=== PATIENT | male | born 1990 | race American Indian/Alaskan Native ===

== ENCOUNTER 2018-06-13 02:28 | Emergency (ER) | payer SELFPAY ==
[2018-06-13 03:30] VITALS: BP 126/81
--- NOTE | 2018-06-13 04:30 | Cat Scan Report ---
FINAL REPORT PROCEDURE: CT HEAD/BRAIN WO CON TECHNIQUE: Computerized tomography of the head was performed without contrast material. HISTORY: headache and right face pain COMPARISON: No prior studies are available for comparison. FINDINGS: Skull and scalp: Normal. Paranasal sinuses: Normal. Ventricles and subarachnoid spaces: Normal. Cerebrum: No evidence of hemorrhage, acute infarction or mass . Cerebellum and brainstem: No evidence of hemorrhage, acute infarction or mass. Vasculature: Normal. Comments: None. IMPRESSION: Normal Examination
--- NOTE | 2018-06-13 05:39 | Cat Scan Report ---
FINAL REPORT PROCEDURE: CT FACIAL BONES WO CON TECHNIQUE: Computerized tomography of the facial bones and soft tissues with axial and coronal sections performed from the cranial aspect of the frontal sinuses to the caudal portion of the mandible without contrast material. HISTORY: headache and right face pain COMPARISON: No prior studies are available for comparison. FINDINGS: Bones: No significant abnormality. Paranasal sinuses: There are polyps in the maxillary sinuses. There are no air-fluid levels. The ostiomeatal units are obstructed by mucosal thickening. The right middle turbinate is pneumatized. The nasal septum is midline and intact. Soft tissues: No significant abnormality. Other: None. IMPRESSION: There is no acute bony abnormality. There is no acute sinusitis. There are polyps in the maxillary sinuses bilaterally.
[2018-06-13] MEDS ORDERED: MOTRIN PO ONE (05:55)
--- NOTE | 2018-06-13 06:11 | Emergency Department Report ---
ED Headache HPI - General Chief Complaint: Headache Stated Complaint: FACIAL INJURY Time Seen by Provider: 06/13/18 05:53 - History of Present Illness Initial Comments: When he 7-year-old -[place] male presents to the emergency room reporting that automatic sliding door hit him in the left side of his head and cheek while at work tonight. Patient reports a mild headache but has improved some since being here. Patient denies any intent to vision no nausea no vomiting no worsening of headache. He denies any past medical history currently takes no medications on a daily basis and has no known drug allergies. Quality: achy Head Injury Location: temporal Associated Symptoms: denies: confusion, fatigue, fever/chills, loss of consciousness, nausea/vomiting, nasal congestion, nasal drainage, seizures Allergies/Adverse Reactions: Allergies No Known Allergies Allergy (Unverified 06/13/18 03:31) Home Medications: Ambulatory Orders Ibuprofen [Motrin 600 MG tab] 600 mg PO Q8H #15 tablet 06/13/18 ED Review of Systems ROS: Stated complaint: FACIAL INJURY Other details as noted in HPI Comment: All other systems reviewed and negative Neurological: headache ED Past Medical Hx - Past Medical History Previous Medical History?: No - Surgical History Past Surgical History?: No - Social History Smoking Status: Current Every Day Smoker Substance Use Type: None - Medications Home Medications: Home Medications Medication Instructions Recorded Confirmed Last Taken Type Ibuprofen [Motrin 600 MG tab] 600 mg PO Q8H #15 tablet 06/13/18 Unknown Rx ED Physical Exam - General Limitations: No Limitations General appearance: alert, in no apparent distress - Head Head exam: Present: atraumatic, normocephalic - Eye Eye exam: Present: normal appearance, EOMI - ENT ENT exam: Present: mucous membranes moist - Neck Neck exam: Present: normal inspection, full ROM. Absent: tenderness - Back Exam Back exam: Present: full ROM - Expanded Neurological Exam Expanded Patient oriented to: Present: person, place, time Speech: Present: fluid speech Cranial nerves: EOM's Intact: Normal, Gag Reflex: Normal, Tongue Deviation: Normal, Nystagmus: Normal, Facial Sensation: Normal, Facial Palsy with Forehead Movement: Normal, Facial Palsy without Forehead Movement: Normal Cerebellar function: Finger to Nose: Normal, Heel to Howard: Normal, Romberg: Normal Sensory exam: Upper Extremity Light Touch: Normal, Upper Extremity Pin Prick: Normal, Upper Extremity Temperature: Normal, UE 2 Point Discrimination: Normal, Lower Extremity Light Touch: Normal, Lower Extremity Pin Prick: Normal Motor strength exam: RUE: 5, LUE: 5, RLE: 5, LLE: 5 Best Eye Response ([place]): (4) open spontaneously Best Motor Response ([place]): (6) obeys commands Best Verbal Response ([place]): (5) oriented [place] Total: 15 - Psychiatric Psychiatric exam: Present: normal affect, normal mood - Skin Skin exam: Present: warm, dry, intact, normal color. Absent: rash ED Course Vital Signs 06/13/18 03:21 Temperature 98.1 F Pulse Rate 79 Respiratory 16 Rate Blood Pressure 126/81 O2 Sat by Pulse 98 Oximetry ED Medical Decision Making - Medical Decision Making Patient has been evaluated by this provider fast track. Ibuprofen ordered for pain management. Discussed patient he can take Tylenol or Motrin for pain management. He can follow-up for primary care provider symptoms persist or gets worse. Critical care attestation.: If time is entered above; I have spent that time in minutes in the direct care of this critically ill patient, excluding procedure time. ED Disposition Clinical Impression: Minor head injury without loss of consciousness Qualifiers: Encounter type: initial encounter Qualified Code(s): S09.90XA - Unspecified injury of head, initial encounter Disposition: DC- TO HOME OR SELFCARE Is pt being admited?: No Does the pt Need Aspirin: No Condition: Stable Instructions: Minor Head Injury (ED) Additional Instructions: You can take Tylenol or Motrin for pain management. If her symptoms persist or gets worse please follow up with her primary care provider. Prescriptions: Ibuprofen [Motrin 600 MG tab] 600 mg PO Q8H #15 tablet Referrals: [facility] FREY [Other] - 3-5 Days Forms: Work/School Release Form(ED)
== END 2018-06-13 06:24 | disposition home or self-care (01) ==
LOC: ED 02:28
DX: S06.0X0A Concussion without loss of consciousness, initial encounter (principal); F17.200 Nicotine dependence, unspecified, uncomplicated; W22.8XXA Striking against or struck by other objects, initial encounter; Y93.89 Activity, other specified; Y92.89 Other specified places as the place of occurrence of the external cause; Y99.8 Other external cause status
CPT/HCPCS: 70450; 70486; 99283